=== PATIENT | male | born 1985 | race Caucasian/White ===

== ENCOUNTER 2018-08-07 14:34 | Emergency (ER) | payer OTHER, SELFPAY ==
[2018-08-07 14:29] VITALS: BP 149/91; PULSE 137; RESP 20; TEMP 39.3; O2SAT 95
[2018-08-07 14:42] VITALS: PULSE 124
[2018-08-07] MEDS: Acetaminophen 500 MG TAB (15:21)
[2018-08-07] MEDS: Ketorolac 30 MG/ML VIAL IM (15:23)
[2018-08-07] MEDS: Acetaminophen 500 MG TAB PO (16:00)
[2018-08-07 16:02] VITALS: BP 148/88; PULSE 116; RESP 18; TEMP 38.6; O2SAT 98
--- NOTE | 2018-08-07 16:06 | W.ED.GENAD ---
Discharge Plan Disposition Patient Disposition: HOME Condition: Improving Discharge Details Chief Complaint: RespSymp Clinical Impression: Influenza Reason For Visit: CRISTY Primary Care Provider: None,None ED Provider: Nabil Naqvi Home Meds and New Rx's Prescriptions: No Action No Known Home Meds RF: 0 Discharge Instructions Instructions: Influenza (ED) Additional Instructions: During illness stay well-hydrated and drink lots of water, get plenty of rest, and use [id number] medications as needed for pain, discomfort, or symptoms. Just take as directed on packaging. Feel free to return the emergency department for any new or significant worsening of symptoms otherwise follow-up with your primary care provider if you are not improving after 1 week. Stand Alone Forms: Work Release Referrals: Primary Care Provider [Outside] (As needed for reassessment) Discharge Data Discharge Date/Time-TO BE ENTERED AT DEPARTURE: 08/07/18 16:16 Medical Decision Making Patient presented the emergency department for flulike symptoms. Patient states has similar symptoms but she has resolved. He has had symptoms for the past 3 days. Physical exam is consistent with influenza and no signs of pneumonia, meningitis, retropharyngeal or peritonsillar abscess. Patient is significantly tachycardic and febrile upon presentation but I feel that this is secondary to influenza illness. I did not perform rapid testing due to not changing plan of care due to patient being otherwise healthy with no medical complications and having symptoms greater than 48 hours. Patient was offered IV fluids which he denied IV fluids but was agreeable to IM ketorolac and acetaminophen and would orally hydrate in emergency department. After oral hydration and medications fever began to reduce along with heart rate becoming lower. Patient was encouraged to stay well-hydrated get plenty of rest and continue symptomatic medications and return for any new or significant worsening of his symptoms. After discussion of diagnosis and plan of care patient is no further needs, questions, or concerns and states clear understanding to return to the emergency department for any worsening symptoms. HPI General Mode of arrival: EMS. Date/Time Provider Initiated Documentation: 08/07/18 15:02. Limitations to Documentation: no limitations. Information obtained by: patient and RN notes reviewed. History of Present Illness 33 year old M presents to the emergency department with the chief complaint of Flulike symptoms, described as moderate, with intensity rated at 8. and is localized to the head. Patient started experiencing this day(s) (3) and it has been constant. No relieving factors improve symptom(s), No exacerbating factors reported . Patient did receive the following treatments prior to arrival, none Related Data Home Medications Medication Instructions Recorded Confirmed Unknown [No Known Home Meds] 04/26/15 04/26/15 Allergies Allergy/AdvReac Type Severity Reaction Status Date / Time amoxicillin Allergy Hives Unverified 04/26/15 09:27 General Stated Complaint: RespSymp LALA: 3 Review of Systems Constitutional Reports body ache(s), Reports chills, Reports fever(s), Reports headache(s) and Reports malaise Eyes Denies eye discharge ENT Reports as per HPI, Denies ear discharge, Denies otalgia, Reports headache(s), Reports nasal congestion, Reports nasal discharge, Denies neck pain, Reports sinus pain, Reports sinus pressure, Reports sore throat and Denies throat swelling Cardiovascular Denies chest pain and Denies dyspnea Respiratory Reports cough and Denies dyspnea Musculoskeletal Denies joint swelling and Denies neck pain Integumentary/Breasts Denies rash Neurologic Reports headache(s) Allergic/Immunologic Denies throat swelling [facility] Social History Smoking/Tobacco Use Status: Never Exam Const General: cooperative, comfortable and no acute distress Orientation: alert and awake [facility] Head: normal to inspection, normocephalic and atraumatic Ears: hearing grossly normal bilaterally and TM's normal bilaterally General nose exam: external nose normal Face and sinus: sinuses nontender and no erythema Mouth: oral mucosae normal, no drooling, no muffled voice and no trismus Throat: posterior oropharynx normal, tonsils normal and uvula midline Neck Neck: normal visual inspection, full ROM, no lymphadenopathy, no meningeal signs, trachea midline and supple Resp Effort & Inspection: normal respiratory effort, able to speak in complete sentences and cough Quality of cough: dry Auscultation: clear to auscultation bilaterally Cardio Rate: regular rate Rhythm: regular rhythm Heart Sounds: S1 normal, S2 normal, normal S1 and S2, no click, no gallops, no murmurs and no rubs Skin General skin exam: no rashes or lesions noted and dry skin (warm) Neuro General: alert, awake, oriented x3, gait normal and moves all extremities Cognition: normal cognition Speech: speech normal Course Vital Signs Temperature 39.3 C H 08/07/18 14:29 Pulse 137 H 08/07/18 14:29 Respiratory Rate 20 08/07/18 14:29 Blood Pressure 149/91 H 08/07/18 14:29 Pulse Oximetry 95 08/07/18 14:29 Temperature 38.6 C H 08/07/18 16:02 Temperature Source Oral 08/07/18 16:02 Pulse 116 H 08/07/18 16:02 Respiratory Rate 18 08/07/18 16:02 Respiratory Effort 08/07/18 14:42 Blood Pressure 148/88 H 08/07/18 16:02 Blood Pressure Position Sitting 08/07/18 14:29 Pulse Oximetry 98 08/07/18 16:02 Oxygen Delivery Method Room Air 08/07/18 16:02 Oxygen Flow Rate 0 08/07/18 16:02 Pain Level 5 08/07/18 15:23
--- NOTE | 2018-08-07 16:10 | ED.GENADUL_ITS ---
Discharge Plan Disposition Patient Disposition: HOME Condition: Improving Discharge Details Chief Complaint: RespSymp Clinical Impression: Influenza Reason For Visit: CRISTY Primary Care Provider: None,None ED Provider: Nabil Naqvi Home Meds and New Rx's Prescriptions: No Action No Known Home Meds RF: 0 Discharge Instructions Instructions: Influenza (ED) Additional Instructions: During illness stay well-hydrated and drink lots of water, get plenty of rest, and use [id number] medications as needed for pain, discomfort, or symptoms. Just take as directed on packaging. Feel free to return the emergency department for any new or significant worsening of symptoms otherwise follow-up with your primary care provider if you are not improving after 1 week. Stand Alone Forms: Work Release Referrals: Primary Care Provider [Outside] (As needed for reassessment) Discharge Data Discharge Date/Time-TO BE ENTERED AT DEPARTURE: 08/07/18 16:16 Medical Decision Making Patient presented the emergency department for flulike symptoms. Patient states has similar symptoms but she has resolved. He has had symptoms for the past 3 days. Physical exam is consistent with influenza and no signs of pneumonia, meningitis, retropharyngeal or peritonsillar abscess. Patient is s ignificantly tachycardic and febrile upon presentation but I feel that this is secondary to influenza illness. I did not perform rapid testing due to not changing plan of care due to patient being otherwise healthy with no medical complications and having symptoms greater than 48 hours. Patient was offered IV fluids which he denied IV fluids but was agreeable to IM ketorolac and acetaminophen and would orally hydrate in emergency department. After oral hydration and medications fever began to reduce along with heart rate becoming lower. Patient was encouraged to stay well-hydrated get plenty of rest and continue symptomatic medications and return for any new or significant worsening of his symptoms. After discussion of diagnosis and plan of care patient is no further needs, questions, or concerns and states clear understanding to return to the emergency department for any worsening symptoms. HPI General Mode of arrival: EMS . Date/Time Provider Initiated Documentation: 08/07/18 15:02 . Limitations to Documentation: no limitations . Information obtained by: patient and RN notes reviewed . History of Present Illness 33 year old M presents to the emergency department with the chief complaint of Flulike symptoms, described as moderate, with intensity rated at 8. and is localized to the head. Patient started experiencing this day(s) (3) and it has been constant. No relieving factors improve symptom(s), No exacerbating factors reported . Patient did receive the following treatments prior to arrival, none Related Data Home Medications Medication Instructions Recorded Confirmed Unknown [No Known Home Meds] 04/26/15 04/26/15 Allergies Allergy/AdvReac Type Severity Reaction Status Date / Time amoxicillin Allergy Hives Unverified 04/26/15 09:27 General Stated Complaint: RespSymp LALA: 3 Review of Systems Constitutional Reports body ache(s), Reports chills, Reports fever(s), Reports headache(s) and Reports malaise Eyes Denies eye discharge ENT Reports as per HPI, Denies ear discharge, Denies otalgia, Reports headache(s), Reports nasal congestion, Reports nasal discharge, Denies neck pain, Reports sinus pain, Reports sinus pressure, Reports sore throat and Denies throat swelling Cardiovascular Denies chest pain and Denies dyspnea Respiratory Reports cough and Denies dyspnea Musculoskeletal Denies joint swelling and Denies neck pain Integumentary/Breasts Denies rash Neurologic Reports headache(s) Allergic/Immunologic Denies throat swelling [facility] Social History Smoking/Tobacco Use Status: Never Exam Const General: cooperative, comfortable and no acute distress Orientation: alert and awake [facility] Head: normal to inspection, normocephalic and atraumatic Ears: hearing grossly normal bilaterally and TM's normal bilaterally General nose exam: external nose normal Face and sinus: sinuses nontender and no erythema Mouth: oral mucosae normal, no drooling, no muffled voice and no trismus Throat: posterior oropharynx normal, tonsils normal and uvula midline Neck Neck: normal visual inspection, full ROM, no lymphadenopathy, no meningeal signs, trachea midline and supple Resp Effort & Inspection: normal respiratory effort, able to speak in complete sentences and cough Quality of cough: dry Auscultation: clear to auscultation bilaterally Cardio Rate: regular rate Rhythm: regular rhythm Heart Sounds: S1 normal, S2 normal, normal S1 and S2, no click, no gallops, no murmurs and no rubs Skin General skin exam: no rashes or lesions noted and dry skin (warm) Neuro General: alert, awake, oriented x3, gait normal and moves all extremities Cognition: normal cognition Speech: speech normal Course Vital Signs Temperature 39.3 C H 08/07/18 14:29 Pulse 137 H 08/07/18 14:29 Respiratory Rate 20 08/07/18 14:29 Blood Pressure 149/91 H 08/07/18 14:29 Pulse Oximetry 95 08/07/18 14:29 Temperature 38.6 C H 08/07/18 16:02 Temperature Source Oral 08/07/18 16:02 Pulse 116 H 08/07/18 16:02 Respiratory Rate 18 08/07/18 16:02 Respiratory Effort 08/07/18 14:42 Blood Pressure 148/88 H 08/07/18 16:02 Blood Pressure Position Sitting 08/07/18 14:29 Pulse Oximetry 98 08/07/18 16:02 Oxygen Delivery Method Room Air 08/07/18 16:02 Oxygen Flow Rate 0 08/07/18 16:02 Pain Level 5 08/07/18 15:23
[2018-08-07 16:25] VITALS: BP 148/88; PULSE 116; RESP 18; TEMP 38.6; O2SAT 98
== END 2018-08-07 16:16 | disposition home or self-care (01) ==
PROVIDERS: Emergency Provider Nurse Practitioner Family; PCP Nurse Practitioner Family
DX: J11.1 Influenza due to unidentified influenza virus with other respiratory manifestations (principal)
CPT/HCPCS: 96372; 99284; 99282; J1885

== ENCOUNTER 2018-10-26 07:47 | Outpatient (REF) | payer OTHER, SELFPAY ==
[2018-10-26 12:28] LABS: ALT 63 U/L (12-78); AST 30 U/L (15-37); Alkaline Phosphatase 103 U/L (46-116); Anion Gap 10.1 mmol/L (3-11); BUN 13 mg/dL (7-18); Bilirubin, Total 0.3 mg/dL (0.2-1.0); CO2 26.9 mmol/L (21.0-32.0); CREATININE 1.14 mg/dL (0.70-1.30); Calcium 9.3 mg/dL (8.5-10.1); Chloride 104 mmol/L (98-107); Cholesterol 158 mg/dL (50-200); Glucose 105 mg/dL (70-100); HDL Cholesterol 28 mg/dL (40-60); LDL CHOLESTEROL 112 mg/dL (<100); Potassium 4.4 mmol/L (3.5-5.1); Sodium 141 mmol/L (136-145); Total Protein 7.7 g/dL (6.4-8.2); Triglyceride 120 mg/dL (30-150)
== END 2018-10-26 08:07 ==
LOC: NCHCN 07:47
PROVIDERS: PCP Nurse Practitioner Family; Visit Provider Nurse Practitioner Family
DX: Z13.220 Encounter for screening for lipoid disorders (principal); Z13.228 Encounter for screening for other metabolic disorders; Z98.41 Cataract extraction status, right eye
CPT/HCPCS: 80053; 80061; 83721

== ENCOUNTER 2018-12-06 09:33 | Outpatient (CLI) | payer OTHER, SELFPAY ==
--- NOTE | 2018-12-06 09:30 | DI.RAD_ITS ---
SYMPTOMS/DIAGNOSIS: RT ANKLE PAIN RIGHT ANKLE: The bony structures are normally mineralized. There is no evidence of an ankle fracture or dislocation. A bony density just inferior to the distal fibula may represent an os fibulare vs the residual of an old injury. The mortise joint is well maintained. SUMMARY: No evidence of an acute fracture or dislocation.
== END 2018-12-06 09:53 ==
PROVIDERS: PCP Nurse Practitioner Family; Visit Provider Physician Assistant
DX: M25.571 Pain in right ankle and joints of right foot (principal)
CPT/HCPCS: 73610

== ENCOUNTER 2019-03-15 13:35 | Emergency (ER) | payer OTHER, SELFPAY ==
[2019-03-15 13:40] VITALS: BP 148/62; PULSE 102; RESP 14; TEMP 36.2; O2SAT 98
--- NOTE | 2019-03-15 14:12 | W.ED.GENAD ---
Discharge Plan Disposition Patient Disposition: HOME Condition: Stable Discharge Details Chief Complaint: Sorethroat Clinical Impression: Pharyngitis Primary Care Provider: Shruthi Alanis ED Provider: Yisel Edmonds Home Meds and New Rx's Prescriptions: New azithromycin [Zithromax] 500 mg tablet 500 mg PO DAILY 5 Days Qty: 5 RF: 0 Discharge Instructions Instructions: Pharyngitis (ED) Additional Instructions: Your rapid strep test was negative for strep pharyngitis but your throat swab was sent for a culture for further evaluation. You still may have a bacterial infection or this may be a virus. Alternate Tylenol and Motrin as needed and directed for pain. Take the antibiotics as directed until finished. Follow-up with your primary care doctor next week for reevaluation. Return to the emergency department if you develop any worsening or new concerning symptoms. Stand Alone Forms: Work Release Discharge Data Discharge Physician: Yisel Edmonds Medical Decision Making 33-year-old male with no significant past medical history presents with fever and sore throat since last night. T-max 100.9. Patient able to speak in full sentences. Temp 97.2. No drooling, trismus, peritonsillar abscess. Uvula midline. He has bilateral tonsillar edema, erythema and right-sided exudates. Rapid strep done and negative. Based on patient's exam, does appear consistent with bacterial pharyngitis. Also discussed the possibility of virus or mononucleosis. Patient has an allergy to amoxicillin. Will give a prescription for Zithromax. A dose of Decadron was given here due to pain with swallowing. He is advised to alternate Tylenol and Motrin, drink plenty of fluids, take the antibiotics as directed, follow-up with his primary care doctor and return here at any time if worse. Medical Records Medical records reviewed: Yes I reviewed the patient's medical records. Lab Data Lab results reviewed: Yes I reviewed the patient's lab results. Rapid strep negative HPI General Mode of arrival: ambulatory. Date/Time Provider Initiated Documentation: 03/15/19 13:42. Limitations to Documentation: no limitations. Information obtained by: patient. HPI Narrative: Patient is a 33-year-old male with no significant past medical history presents with sore throat and fever since last night. T-max 100.9. Took Tylenol at noon today. Denies any ear pain, cough, chest pain, shortness of breath or abdominal pain. He states he is having pain with swallowing and eating. Related Data Home Medications Medication Instructions Recorded Confirmed azithromycin [Zithromax] 500 mg PO DAILY 5 Days #5 tab 03/15/19 Previous Rx's Medication Instructions Recorded azithromycin [Zithromax] 500 mg PO DAILY 5 Days #5 tab 03/15/19 Allergies Allergy/AdvReac Type Severity Reaction Status Date / Time amoxicillin Allergy Hives Unverified 01/17/19 08:56 cillins Allergy Severe Uncoded 01/17/19 08:56 General Stated Complaint: Sorethroat LALA: 4 Review of Systems Review of Systems All systems reviewed & are unremarkable except as noted in HPI and below Constitutional Reports as per HPI, Denies chills and Denies fever(s) Eyes Denies blurry vision ENT Denies dizziness, Reports sore throat and Denies throat swelling Cardiovascular Denies chest pain and Denies dyspnea Respiratory Denies cough and Denies dyspnea Gastrointestinal Denies abdominal pain, Denies diarrhea and Denies vomiting Genitourinary Denies hematuria and Denies dysuria Musculoskeletal Denies back pain and Denies numbness Integumentary/Breasts Denies lesions and Denies rash Neurologic Denies dizziness, Denies focal weakness and Denies numbness Allergic/Immunologic Denies throat swelling [facility] Medical History No significant past medical history (Acute) Surgical History No significant past surgical history (Acute) Social History Smoking/Tobacco Use Status: Never Drug use: Never Do you feel safe in your relationship?: Yes Exam Const General: cooperative and healthy appearing Orientation: alert and awake [facility] Head: normal to inspection Ears: hearing grossly normal bilaterally, external ears normal and TM's normal bilaterally General nose exam: external nose normal Face and sinus: normal facial exam Mouth: oral mucosae normal Teeth and gingiva: dentition normal Throat: uvula midline, no peritonsillar masses and posterior oropharynx abnormal edema, erythema and exudates (R tonsil) Eyes General: appearance normal, both eyes and all related structures Eyelids: eyelids normal EOM: EOM intact bilaterally Neck Neck: normal visual inspection Lymphatic: no lymphadenopathy noted Chest Chest: normal inspection of the chest Resp Effort & Inspection: normal respiratory effort and able to speak in complete sentences Auscultation: clear to auscultation bilaterally Cardio Rate: regular rate Rhythm: regular rhythm GI Inspection: normal to inspection Palpation: soft, not firm, no guarding, no hepatosplenomegaly, no masses and nontender Auscultation: normal bowel sounds Skin General skin exam: no rashes or lesions noted Neuro General: alert and awake Cognition: normal cognition Speech: speech normal Gait: normal gait Motor: muscle tone normal throughout Sensory Exam: no sensory deficits noted Extrem General: normal to inspection, full ROM and normal capillary refill Psych Appearance: grossly normal Mental Status: mental status grossly normal Speech and Movement: speech and movement normal Affect: normal affect Thought Process: normal Course Vital Signs Temperature 97.2 F L 03/15/19 13:40 Pulse 102 H 03/15/19 13:40 Respiratory Rate 14 03/15/19 13:40 Blood Pressure 148/62 H 03/15/19 13:40 Pulse Oximetry 98 03/15/19 13:40 Temperature 97.2 F L 03/15/19 13:40 Temperature Source Tympanic 03/15/19 13:40 Pulse 102 H 03/15/19 13:40 Respiratory Rate 14 03/15/19 13:40 Blood Pressure 148/62 H 03/15/19 13:40 Blood Pressure Position Supine 03/15/19 13:40 Pulse Oximetry 98 03/15/19 13:40 Oxygen Delivery Method Room Air 03/15/19 13:40 Oxygen Flow Rate 0 03/15/19 13:40 Pain Level 9 03/15/19 13:40
[2019-03-15] MEDS: Dexamethasone 10 MG/ML VIAL PO (14:33)
== END 2019-03-15 14:35 | disposition home or self-care (01) ==
PROVIDERS: Emergency Provider Physician Assistant; PCP Nurse Practitioner Family
DX: J02.9 Acute pharyngitis, unspecified (principal)
CPT/HCPCS: 87880; 99283; 87081; J1100

== ENCOUNTER 2019-04-21 08:22 | Emergency (ER) | payer OTHER, SELFPAY ==
[2019-04-21 08:24] VITALS: BP 134/79; PULSE 77; RESP 16; TEMP 37; O2SAT 99
--- NOTE | 2019-04-21 08:48 | W.ED.GENAD ---
Discharge Plan Disposition Patient Disposition: HOME Condition: Good Discharge Details Chief Complaint: Sorethroat Clinical Impression: Strep pharyngitis Primary Care Provider: Shruthi Alanis ED Provider: Lara Caicedo Home Meds and New Rx's Prescriptions: New azithromycin 500 mg tablet 500 mg PO DAILY 5 Days Qty: 5 RF: 0 Discharge Instructions Instructions: Strep Throat (ED) Additional Instructions: Encourage hydration. Tylenol and/or ibuprofen as needed for discomfort. Begin azithromycin as prescribed. After you have been on the azithromycin for the next 48 hours, please replace your toothbrush. This is contagious, take care not to spread to others. Please follow-up with your primary care if not improved in the next week. If you develop inability to stay hydrated, vomiting, difficulty breathing, shortness of breath, increased pain or other new/worsening symptoms please seek care urgently once again. Referrals: Shruthi Alanis [Primary Care Provider] - Medical Decision Making Patient is a 43-year-old male presents today with chief complaint of sore throat x1 week. He reports his daughter was diagnosed with strep throat is concerned that he may have the same. States he has been drinking. Has used Tylenol to help with his discomfort. Has not used any recently. States he had a mild cough is been nonproductive. No fevers or chills. No ear pain. Mild nasal congestion. On exam, patient is resting comfortably. No respiratory distress. Vital signs are within normal limits. Posterior oropharynx is mildly erythematous. No exudates or tonsillar swelling. No trismus. No palpable lymphadenopathy. Rapid strep testing was positive. Patient discussed place with months of antibiotic treatment particularly as he has already week into the course and he prefers to treatment at this point. Patient will be placed on antibiotics. Encourage hydration. Advise follow-up with primary if not improved. He was given return precautions. All his questions and concerns were addressed and he is in agreement this plan. HPI General Mode of arrival: ambulatory. Date/Time Provider Initiated Documentation: 04/21/19 08:48. Limitations to Documentation: no limitations. Information obtained by: patient and RN notes reviewed. History of Present Illness 33 year old M presents to the emergency department with the chief complaint of sore throat, described as moderate, with intensity rated at 7. Quality is described as aching, and is localized to the mouth. Patient reports no radiation. Patient started experiencing this week(s) (1) and it has been constant. No relieving factors improve symptom(s), No exacerbating factors reported . Patient notes cough; denies chest pain, diaphoresis, fever/chills, headaches, loss of appetite, nausea/vomiting, rash and shortness of breath. Patient did receive the following treatments prior to arrival, none Related Data Home Medications Medication Instructions Recorded Confirmed azithromycin 500 mg PO DAILY 5 Days #5 tab 04/21/19 Previous Rx's Medication Instructions Recorded azithromycin 500 mg PO DAILY 5 Days #5 tab 04/21/19 Allergies Allergy/AdvReac Type Severity Reaction Status Date / Time amoxicillin Allergy Hives Unverified 04/21/19 08:26 cillins Allergy Severe Uncoded 04/21/19 08:26 General Stated Complaint: Sorethroat LALA: 4 Review of Systems Constitutional Constitutional: Reports as per HPI, Denies chills, Denies fever(s), Denies headache(s) and Denies poor appetite Eyes Eyes: Reports as per HPI, Denies eye discharge and Denies irritation ENT Ears, Nose, Mouth, and Throat: Reports as per HPI and Denies headache(s) Cardiovascular Cardiovascular: Reports as per HPI, Denies chest pain and Denies dyspnea Respiratory Respiratory: Reports as per HPI and Denies dyspnea Gastrointestinal Gastrointestinal: Reports as per HPI, Denies abdominal pain, Denies change in bowel habits, Denies nausea and Denies vomiting Integumentary/Breasts Skin/Breast: Reports as per HPI and Denies rash Neurologic Neurologic: Reports as per HPI and Denies headache(s) [facility] Medical History No significant past medical history (Acute) Surgical History No significant past surgical history (Acute) Social History Smoking/Tobacco Use Status: Never Alcohol Intake: never Drug use: Never Substance use type: does not use Do you feel safe in your relationship?: Yes Exam Const General: cooperative, healthy appearing, comfortable, no acute distress, well developed and well groomed Nutritional Appearance: well nourished and overweight Orientation: alert and awake [facility] Head: normal to inspection, normocephalic and atraumatic Ears: hearing grossly normal bilaterally, external ears normal and TM's normal bilaterally General nose exam: external nose normal and nares normal Face and sinus: normal facial exam, sinuses nontender and face symmetric Mouth: oral mucosae normal, lip normal, tongue normal, oropharynx normal and moist mucous membranes Teeth and gingiva: dentition normal Throat: uvula midline, abnormal tonsil bilaterally erythema, no peritonsillar masses, posterior oropharynx abnormal erythema and no postnasal drainage Eyes General: appearance normal, both eyes and all related structures Neck Neck: normal visual inspection, full ROM, no lymphadenopathy and no meningeal signs Resp Effort & Inspection: normal respiratory effort, able to speak in complete sentences and no respiratory distress Auscultation: clear to auscultation bilaterally, no rales, no rhonchi and no wheezes Cardio Rate: regular rate Rhythm: regular rhythm Heart Sounds: S1 normal and S2 normal Skin General skin exam: no rashes or lesions noted Neuro General: alert and awake Cognition: normal cognition Speech: speech normal Gait: normal gait Psych Appearance: grossly normal and well kempt Mental Status: mental status grossly normal Speech and Movement: speech and movement normal Course Vital Signs Vital signs: Vital Signs Temperature 37.0 C 04/21/19 08:24 Pulse 77 04/21/19 08:24 Respiratory Rate 16 04/21/19 08:24 Blood Pressure 134/79 04/21/19 08:24 Pulse Oximetry 99 04/21/19 08:24 Temperature 37.0 C 04/21/19 08:24 Temperature Source Temporal Artery Scan 04/21/19 08:24 Pulse 77 04/21/19 08:24 Respiratory Rate 16 04/21/19 08:24 Respiratory Effort 04/21/19 08:24 Blood Pressure 134/79 04/21/19 08:24 Blood Pressure Position Sitting 04/21/19 08:24 Pulse Oximetry 99 04/21/19 08:24 Oxygen Delivery Method Room Air 04/21/19 08:24 Oxygen Flow Rate 0 04/21/19 08:24 Pain Level 8 04/21/19 08:24 Lab/Test Results Lab/Test Results: POC Strep Test-KIP(Rapid) Start: 04/21/19 08:31 Freq: .Rapid Strep Test Status: Active Protocol: Document 04/21/19 08:31 AM (Rec: 04/21/19 08:31 AM [id number]) Strep test-KIP(Rapid)-POC POC-Strep test-KIP (Rapid) Positive POC-Strep test-KIP (Rapid) Positive
== END 2019-04-21 09:02 | disposition home or self-care (01) ==
PROVIDERS: Emergency Provider Physician Assistant; PCP Nurse Practitioner Family
DX: J02.0 Streptococcal pharyngitis (principal)
CPT/HCPCS: 87880; 99283

== ENCOUNTER 2020-05-24 12:25 | Emergency (ER) | payer OTHER, SELFPAY ==
--- NOTE | 2020-05-24 12:30 | DI.RAD_ITS ---
EXAM: XR TOE RT GREAT CLINICAL HISTORY: Pain, swelling, R/O fracture TECHNIQUE: COMPARISON: CR RIGHT FOOT COMPLETE from 04/26/2015 FINDINGS: Three views were obtained. No fracture is seen. IMPRESSION: RADIATION DOSE DELIVERED: Total DLP
[2020-05-24 12:31] VITALS: BP 150/86; PULSE 99; RESP 18; TEMP 36.5; O2SAT 99
--- NOTE | 2020-05-24 12:36 | W.ED.GENAD ---
Discharge Plan Disposition Patient Disposition: HOME Condition: Stable Discharge Details Clinical Impression: Gout, Cellulitis, toe Primary Care Provider: Shruthi Alanis ED Provider: Melita Bland Home Meds and New Rx's Prescriptions: New naproxen 500 mg tablet 500 mg PO BID 10 Days Qty: 20 RF: 0 clindamycin HCl 300 mg capsule 300 mg PO BID 7 Days Qty: 14 RF: 0 No Action acetaminophen 500 mg Capsule 1,000 mg PO HS PRN PRNRF: 0 Discharge Instructions Instructions: Cellulitis (ED), Gout (ED) Additional Instructions: Follow up with primary care provider in 3-5 days. Return to ED sooner if any worsening or concerns. Increase oral fluids. Please take Tylenol or Ibuprofen with food every 4-6 hours as needed for pain and swelling. Take naproxen twice a day for 4 to 10 days. Decrease alcohol intake and high-calorie foods such as red meat these tend to exacerbate the condition. You may apply ice every 20 minutes for the first couple of days keep it elevated. No broken bones were noted on x-ray. Return to the ED for any worsening swelling, fever, red streaks noted up the foot or any concerns. Stand Alone Forms: Work Release Referrals: Shruthi Alanis [Primary Care Provider] - Medical Decision Making 35-year-old male presents to the ER with right great toe tenderness for 1 week. He denies any known injury. He denies having any episodes like this before. Toe is tender around the metatarsal interface laryngeal joint, no obvious deformity, there is mild swelling. Denies any fever or other complaints at this time. He does report occasional alcohol use. Differential diagnosis includes cellulitis, underlying injury, gout. At this time uric acid ordered and x-ray to rule out bony abnormality. 1310: Uric acid elevated at 7.4 TECHNIQUE: Imaging protocol: XR Right toes. Views: Minimum 2 views. COMPARISON: CR XR ANKLE RT COMPLETE 12/06/2018 9:39 AM FINDINGS: Bones/joints: Normal. Soft tissues: Soft tissue swelling about the right 1st toe. IMPRESSION: No fracture identified. Soft tissue swelling about the right 1st toe. Thank you for allowing us to participate in the care of your patient. Discussed x-rays and uric acid results with patient verbalized understanding. On reexam he does appear to have a little bit of erythema streaking up the top of his foot. I will cover him for possible cellulitis as well with clindamycin and also given a prescription for naproxen 500 mg twice daily for possible gout. Patient given a work note to be off work for the next few days. Instructed on ice and elevation, verbalized understanding. HPI General Mode of arrival: ambulatory. Date/Time Provider Initiated Documentation: 05/24/20 12:25. Limitations to Documentation: no limitations. Information obtained by: patient. HPI Narrative: 35-year-old male presents to the ER with right great toe tenderness for 1 week. He denies any known injury. He denies having any episodes like this before. Toe is tender around the metatarsal interface laryngeal joint, no obvious deformity, there is mild swelling. Denies any fever or other complaints at this time. He does report occasional alcohol use. Related Data Home Medications Medication Instructions Recorded Confirmed acetaminophen 1,000 mg PO HS PRN PRN 05/24/20 05/24/20 clindamycin HCl 300 mg PO BID 7 Days #14 cap 05/24/20 naproxen 500 mg PO BID 10 Days #20 tab 05/24/20 Previous Rx's Medication Instructions Recorded clindamycin HCl 300 mg PO BID 7 Days #14 cap 05/24/20 naproxen 500 mg PO BID 10 Days #20 tab 05/24/20 Allergies Allergy/AdvReac Type Severity Reaction Status Date / Time amoxicillin Allergy Hives Unverified 05/24/20 12:33 cillins Allergy Severe Uncoded 05/24/20 12:33 General Stated Complaint: Orthopedic LALA: 3 Review of Systems All systems reviewed & are unremarkable except as noted in HPI and below Musculoskeletal Musculoskeletal: Reports arthralgias (Right great toe) COUNTS INCLUDE 234 BEDS AT THE [facility] Medical History (Updated 05/24/20 @ 13:57 by Melita Bland) No significant past medical history Surgical History No significant past surgical history Social History Smoking/Tobacco Use Status: Never Smoking risk assessment performed?: Yes Alcohol Intake: never Drug use: Never Substance use type: does not use Do you feel safe in your relationship?: Yes Exam Extrem Right lower extremity: foot Details: normal capillary refill, tenderness Location: of the great toe Location: at the MTP joint and along the dorsal aspect, abnormal ROM of toe and warmth Ankle/foot/toe images: 1. Pain with palpation Course Vital Signs Vital signs: Vital Signs Temperature 36.5 C 05/24/20 12:31 Pulse 99 H 05/24/20 12:31 Respiratory Rate 18 05/24/20 12:31 Blood Pressure 150/86 H 05/24/20 12:31 Pulse Oximetry 99 05/24/20 12:31 Temperature 36.5 C 05/24/20 12:31 Temperature Source Temporal Artery Scan 05/24/20 12:31 Pulse 99 H 05/24/20 12:31 Respiratory Rate 18 05/24/20 12:31 Blood Pressure 150/86 H 05/24/20 12:31 Blood Pressure Position Sitting 05/24/20 12:31 Pulse Oximetry 99 05/24/20 12:31 Oxygen Delivery Method Room Air 05/24/20 12:31 Oxygen Flow Rate 0 05/24/20 12:31 Pain Level 8 05/24/20 12:32
[2020-05-24] MEDS: Ketorolac 10 MG TAB PO (12:53)
[2020-05-24 13:04] LABS: Uric Acid 7.4 mg/dL (3.5-7.2)
--- NOTE | 2020-05-24 13:47 | DI.VRAD_ITS ---
PROCEDURE INFORMATION: Exam: XR Right Toe(s) Exam date and time: 05/24/2020 12:35 PM Age: 35 years old Clinical indication: Other: Pain, swelling, R/O fracture TECHNIQUE: Imaging protocol: XR Right toes. Views: Minimum 2 views. COMPARISON: CR XR ANKLE RT COMPLETE 12/06/2018 9:39 AM FINDINGS: Bones/joints: Normal. Soft tissues: Soft tissue swelling about the right 1st toe. IMPRESSION: No fracture identified. Soft tissue swelling about the right 1st toe. Dictated and Authenticated by: Lisa Carl MD. Ordering:STEVE Hua MD
== END 2020-05-24 14:10 | disposition home or self-care (01) ==
PROVIDERS: Emergency Provider Registered Nurse Emergency; PCP Nurse Practitioner Family
DX: L03.031 Cellulitis of right toe (principal); M10.9 Gout, unspecified
CPT/HCPCS: 36415; 99284; 73660; 84550; 99283

== ENCOUNTER 2020-09-06 17:13 | Emergency (ER) | payer OTHER, SELFPAY ==
[2020-09-06 17:17] VITALS: BP 142/91; PULSE 83; RESP 20; TEMP 36.1; O2SAT 100
--- NOTE | 2020-09-06 17:25 | W.ED.GENAD ---
Discharge Plan Disposition Patient Disposition: HOME Condition: Stable Discharge Details Clinical Impression: Dog bite of right ear, Laceration Primary Care Provider: Shruthi Alanis ED Provider: Melita Bland Home Meds and New Rx's Prescriptions: New doxycycline hyclate 100 mg capsule 100 mg PO BID 5 Days Qty: 10 RF: 0 No Action acetaminophen 500 mg Capsule 1,000 mg PO PRN PRNRF: 0 Discharge Instructions Instructions: Animal Bite (ED), Laceration (ED) Additional Instructions: Follow up with primary care provider in 3-5 days. Return to ED sooner if any worsening or concerns. Increase oral fluids. Please take Tylenol or Ibuprofen with food every 4-6 hours as needed for pain and swelling. The Steri-Strips will start to fall off in approximately 4 to 6 days. You may reapply Steri-Strip if needed after 2 to 3 days. Return to the ED for any signs of infection including increased redness, swelling, drainage or fever. Take antibiotics as directed. Referrals: Shruthi Alanis [Primary Care Provider] - Discharge Data Discharge Date/Time-TO BE ENTERED AT DEPARTURE: 09/06/20 18:06 Medical Decision Making 35-year-old male presents to the ED with chief complaint of right ear laceration status post dog bite just prior to arrival. Patient has a 5-month-old puppy who is up-to-date on his vaccinations that he was playing with when the puppy bit his right ear. He has approximately 2 cm linear laceration to his external ear antihelix area. No active bleeding at this time. Patient did apply pressure prior to arrival. He is unsure of his last tetanus vaccination. He denies any other complaints or injuries. Wound was extensively irrigated and cleaned, bleeding controlled. 3 Steri strips and benzoine applied to approximate wound. Patient tolerated well. Rx for Doxycycline ordered and patient give 2 tabs to go. Doxycycline was chosen due to patients allergy to Amoxicillin. Patient received Tdap booster. Discussed strict return instructions, home care, and red flags to watch for including signs of infection verbalized understanding. HPI General Mode of arrival: ambulatory. Date/Time Provider Initiated Documentation: 09/06/20 17:13. Limitations to Documentation: no limitations. Information obtained by: patient. HPI Narrative: 35-year-old male presents to the ED with chief complaint of right ear laceration status post dog bite just prior to arrival. Patient has a 5-month-old puppy who is up-to-date on his vaccinations that he was playing with when the puppy bit his right ear. He has approximately 2 cm linear laceration to his external ear antihelix area. No active bleeding at this time. Patient did apply pressure prior to arrival. He is unsure of his last tetanus vaccination. He denies any other complaints or injuries. Related Data Home Medications Medication Instructions Recorded Confirmed acetaminophen 1,000 mg PO PRN PRN 05/24/20 09/06/20 doxycycline hyclate 100 mg PO BID 5 Days #10 cap 09/06/20 Previous Rx's Medication Instructions Recorded doxycycline hyclate 100 mg PO BID 5 Days #10 cap 09/06/20 Allergies Allergy/AdvReac Type Severity Reaction Status Date / Time amoxicillin Allergy Hives Unverified 09/06/20 17:20 cillins Allergy Severe Uncoded 09/06/20 17:20 General Stated Complaint: AnimalBite LALA: 4 Review of Systems All systems reviewed & are unremarkable except as noted in HPI and below ENT Ears, Nose, Mouth, and Throat: Reports otalgia (Dog bite right ear) COUNT INCLUDES THE [facility] Medical History (Updated 09/06/20 @ 17:45 by Melita Bland) No significant past medical history Surgical History No significant past surgical history Social History Smoking/Tobacco Use Status: Never Smoking risk assessment performed?: Yes Alcohol Intake: never Drug use: Never Substance use type: does not use Do you feel safe in your relationship?: Yes Exam Const General: cooperative, healthy appearing, comfortable and well groomed Nutritional Appearance: well nourished Orientation: alert, awake and oriented x3 HENMT Head: normal to inspection and no Redd's sign Ears: TM's normal bilaterally and external ear abnormal other (2 cm linear laceration) Outer ear/TM images: 1. 2 cm laceration, bleeding controlled Face and sinus: normal facial exam Course Vital Signs Vital signs: Vital Signs Temperature 36.1 C L 09/06/20 17:17 Pulse 83 09/06/20 17:17 Respiratory Rate 20 09/06/20 17:17 Blood Pressure 142/91 H 09/06/20 17:17 Pulse Oximetry 100 09/06/20 17:17 Temperature 36.1 C L 09/06/20 17:17 Temperature Source Skin 09/06/20 17:17 Pulse 83 09/06/20 17:17 Respiratory Rate 20 09/06/20 17:17 Respiratory Effort Non-Labored 09/06/20 17:20 Blood Pressure 142/91 H 09/06/20 17:17 Blood Pressure Position Sitting 09/06/20 17:17 Pulse Oximetry 100 09/06/20 17:17 Oxygen Delivery Method Room Air 09/06/20 17:17 Oxygen Flow Rate 0 09/06/20 17:17 Pain Level 4 09/06/20 17:17 Procedures Laceration Laceration 1: Site: other (R Ear) Side (If applicable): right Size (cm): 2 Description: linear Depth: simple, single layer Pre-repair: irrigated extensively Size (cm): other (Steri strips)
[2020-09-06] MEDS: Doxycycline Hyclate 100 MG CAP PO (17:39)
[2020-09-06] MEDS: Doxycycline Hyclate 100 MG, 2 CAPS/BTL PO (17:54)
--- NOTE | 2020-09-06 18:00 | NUR.NOTE ---
Animal bite form faxed to [facility] dispatch attn Samir Rodríguez. [phone].Nursing Note:
== END 2020-09-06 18:06 | disposition home or self-care (01) ==
PROVIDERS: Emergency Provider Registered Nurse Emergency; PCP Nurse Practitioner Family
DX: S01.351A Open bite of right ear, initial encounter (principal); W54.0XXA Bitten by dog, initial encounter
CPT/HCPCS: 90471; 99284; 99283

== ENCOUNTER 2020-12-03 01:40 | Outpatient (CLI) | payer OTHER, SELFPAY ==
--- NOTE | 2020-12-03 09:00 | DI.MRI_ITS ---
Exam(s) MR LOWER JOINT RT WO EXAM: MR LOWER JOINT RT WO CLINICAL HISTORY: Pain,MALUNION OF FX OF RT LOWER LEG, S82.91XP TECHNIQUE: Multiplanar multisequence MRI was performed without intravenous contrast. COMPARISON: CR RIGHT ANKLE COMPLETE from 04/26/2015 CR RIGHT FOOT COMPLETE from 04/26/2015 CR RIGHT ANKLE COMPLETE from 04/26/2015 CR XR ANKLE RT COMPLETE from 12/06/2018 FINDINGS: SKIN: No evidence of ulcer nor subcutaneous tract. No subcutaneous edema around the ankle. BONES/JOINTS: No evidence of acute fracture nor bone contusion. There are multiple calcific density s ubjacent to the lateral malleolus which do not exhibit edema signal and appear corticated and probabl y are accessory ossicles or remote avulsion sequelae. There is no prominent ankle joint effusion. The talar dome appears unremarkable. The ankle mortise is maintained. The subtalar joint appears unrem arkable. Talonavicular and calcaneocuboid joints appear unremarkable, as do the visualized midfoot ar ticulations. There is no evidence of osseous tarsal coalition. There is os trigonum. No associated abnormal signal. LIGAMENTS: The anterior and posterior tibiofibular are intact. The fibular aspect of the anterior talofibular ligament appears to be coming off of the largest sub fibular ossicle and therefore this ossicle is probably a chronic avulsion fracture fragment. Ligament is mildly attenuated. There is no prominent signal abnormality in the anterolateral gutter. The post erior talofibular ligament attachment also appears to be on this same ossicle. On the opposite-medial aspect of the ankle the deltoid ligament appears intact. Suspensory ligament appears intact. SINUS TARSI: There is no effacement of the normal fat signal in this space. Interosseous ligament is intact. There is a sinus tarsi ganglion cyst which measures 1.0 by 1.5 cm. By 1.3 cm. ANTEROLATERAL GUTTER:There is no abnormal signal/abnormal tissue in this space. MUSCULOTENDINOUS STRUCTURES: Achilles tendon: Unremarkable. No evidence of tear nor tendinitis/tendinosis. Plantar fascia: Mild increased signal but no thickening. No nodularity. No abnormal intraosseous sign al in the inferior calcaneus. Anterior Extensor tendons: Unremarkable. Medial Tendons: Posterior Tibialis: Unremarkable. No tear or tenosynovitis evident. Flexor Digitorum longus: Unremarkable. No tear or tenosynovitis evident. Flexor Hallicus longus: Unremarkable. No tear or tenosynovitis evident. Lateral Tendons: Peroneus longus: Unremarkable. No tear nor tenosynovitis evident. Peroneus brevis:Unremarkable. No tear nor tenosynovitis evident. OTHER FINDINGS: None. IMPRESSION: 1. The above described lateral findings are most probably sequela of remote significant inversion inj ury. Although the osteophytic densities evident on prior plain films do not exhibit abnormal signal, the fact that the attachment sites of the anterior and posterior talofibular ligaments are associated with the most superior-largest ossicle implies that this is probably a chronically avulsed fragmen t off the lateral malleolus. There is no bone edema nor overlying soft tissue swelling at this time. 2. There is a located septated ganglion cyst which measures approximately 10 x 15 x 13 millimeter and appears to be originating from the sinus tarsi. This may also be related to sequelae of previous sig nificant inversion injury. 3. There are no tears, tenosynovitis, nor displacement of the peroneus longus and brevis tendons on t he lateral aspect of the ankle. 4. No evidence of stress fracture nor bone contusion signal which would indicate sequelae of chronic altered biomechanics. Also no significant osteoarthritic degenerative changes in the [place] joints n or in the visualized articulations of the midfoot. DATA REPOSITORY:
== END 2020-12-03 02:00 ==
PROVIDERS: PCP Nurse Practitioner Family; Visit Provider Student in an Organized Health Care Education/Training Program
DX: M79.604 Pain in right leg (principal); S82.91 Unspecified fracture of right lower leg
CPT/HCPCS: 73721

== ENCOUNTER 2020-12-22 08:39 | Day surgery (SDC) | payer OTHER, SELFPAY ==
[2020-12-22] VITALS (13 sets, daily range): BP systolic 90–135; BP diastolic 47–85; PULSE 70–107; RESP 12–18; TEMP 36–36.5; TEMPC 36.3; O2SAT 94–99; BMI 37.5
--- NOTE | 2020-12-22 09:01 | ANES.PREOP_ITS ---
General Info Date of Service Date Performed: 12/22/20 Height: 5 ft 11 in Weight: 122.016 kg Body Mass Index (BMI): 37.5 Surgical Procedure: Operation Date: 12/22/20 10:10 Proposed Procedures Side Surgeon p rt ankle ostectomy Right Mariano Collier MD Meds Allergies and Home Medications Allergies Allergy/AdvReac Type Severity Reaction Status Date / Time amoxicillin Allergy Severe Anaphylaxis Unverified 12/22/20 09:06 cillins Allergy Severe Uncoded 12/22/20 09:06 Home Medication Medication Instructions Recorded acetaminophen [Tylenol Extra 500 mg PO Q6H PRN #90 tab 12/22/20 Strength] hydrocodone-acetaminophen 1 tab PO Q6H PRN #5 tab 12/22/20 ibuprofen 600 mg PO TID #90 tab 12/22/20 Current Visit Medications: Current Medications Generic Name Dose Route Start Last Admin Trade Name Freq PRN Reason Stop Dose Admin Ringer's Solution 1,000 mls @ 80 mls/hr 12/22/20 06:00 IV 01/20/21 23:59 INFUSION NANCY Clindamycin Phosphate/Dextrose 900 mg in 50 mls @ 50 mls/hr 12/22/20 06:00 Cleocin In D5w IVPB 12/22/20 18:00 PREOP NANCY IV Miscellaneous Supplies 1 each 12/22/20 06:00 Iv Access IV 01/20/21 23:59 DIRECTED NANCY Sodium Chloride 0 ml 12/22/20 06:00 Normal Saline Flush 10 Ml Syr IV 01/20/21 23:59 PRN PRN Sodium Chloride 0 ml 12/22/20 06:00 Normal Saline 10 Ml Vial IJ 01/20/21 23:59 DIRECTED PRN Sterile Water 0 ml 12/22/20 06:00 Water,Injection,Sterile 10 Ml Vial IJ 01/20/21 23:59 DIRECTED PRN PFSH Active Problems Active Problems: Problem Status Onset Code Peroneal tendinitis, right leg M76.71 Dog bite of right ear S01.351A, W54.0XXA Laceration Malunion of fracture of bone of right lower leg S82.91XP Medical History Medical History History of COVID-19 11/12/20 Tobacco Smoking/Tobacco Use Status: Never Alcohol Alcohol Intake: never Substance Use Substance use: Never Substance use type: does not use Vital Signs and Lab Results Lab Results Blood Type / Crossmatch: No Data to Display Complete Blood Count: No Data to Display Complete Metabolic Panel: No Data to Display Liver Function Panel: No Data to Display Coagulation Panel: No Data to Display Cardiac Panel: 2 No Data to Display Arterial Blood Gas: No Data to Display Venous Blood Gas: No Data to Display Pancreas Panel: No Data to Display Thyroid Panel: No Data to Display Infectious Disease: No Data to Display Blood Cultures: No Data to Display Toxicology Panel: No Data to Display Anesthesia Assessment and Plan Anesthesia History Personal History: No History of General Anesthesia Family History: No Family History of Anesthesia Complications Exercise Tolerance Exercise Tolerance: Metabolic Equivalents>4 Pertinent Negatives Pertinent Negatives: No Symptoms of GERD, No Major Cardiovascular Symptoms or Complaints, No Major Pulmonary Symptoms or Complaints, No History of CVA/TIA and Other (Absence seizures) Cardiac & Pulmonary Exam Cardiac Exam: Normal S1/S2 Heart Sounds Pulmonary Exam: Clear Bilateral Breath Sounds and Active Dry Cough (Infrequent and since COVID) Airway Exam Known Difficult Airway: No Mallampati Class: 2 Mouth Opening: Normal (> 3cm) Thyromental Distance: Greater than 3 cm Neck Range of Motion: Full ROM Neck Circumference: Normal Teeth Condition: Normal Dentition ASA Classification ASA Score: ASA 2 Emergency Case?: No NPO Status NPO Status: NPO Clears >2 hours, Solids >8 hours Anesthesia Plan Resuscitation Status: Full Code Anesthesia Technique: General Anesthesia Airway Planned: Natural Airway Monitors Used: Standard Monitors
--- NOTE | 2020-12-22 09:34 | W.PM.DSUDISC ---
Documented by User: JAMAAL Wells 12/22/20 10:14 Discharge Plan Disposition Patient Disposition: HOME Condition: Stable Discharge Details Reason For Visit: right ankle ostectomy Attending Provider: Mariano Collier Primary Care Provider: Shruthi Alanis Home Meds and New Rx's Prescriptions: New hydrocodone-acetaminophen 5-325 mg tablet 1 tab PO Q6H PRNQty: 5 RF: 0 acetaminophen [Tylenol Extra Strength] 500 mg tablet 500 mg PO Q6H PRNQty: 90 RF: 0 ibuprofen 600 mg tablet 600 mg PO TID Qty: 90 RF: 0 Discontinued acetaminophen 500 mg Capsule 1,000 mg PO PRN PRNRF: 0 Discharge Instructions Additional Instructions: Ankle Ostectomy Discharge Instructions Activity: You may weight bear as tolerated. You should keep the leg elevated as much as possible. You may wiggle your toes and move your hip and knee. You should wear the fracture walking boot when you are up and mobilizing, but may remove it when not and move your ankle as tolerated. Dressings: You should keep the initial dressing on for at least 3 days but would recommend to leave it on for 7 days. It may get wet in the shower but if the dressing starts to peel off you should change it. It should be covered for the first 7 days. You may cover the dressing/wound with a cling wrap or Saran wrap to keep it from getting wet. Medications: - You should take Tylenol and Ibuprofen around the clock for baseline pain. - You have been prescribed a stronger narcotic, Hydrocodone, for breakthrough pain. Follow-up: 2 weeks Equipment/Supplies: Partial Weight Bearing Crutches Activity:: Activity as Tolerated Remove Dressings/Wound Care:: 72 hours Shower/Bathe:: 72 hours Diet:: As Tolerated Discharge Orders Discharge Orders: Discharge Order (Routine); Ordered 12/22/20 Ordered By: Susie Rangel DS: Diagnosis Discharge Diagnosis (1) Malunion of fracture of bone of right lower leg: Status: Acute Documented by User: Mariano Collier MD 12/22/20 11:06 Discharge Plan Disposition Patient Disposition: HOME Condition: Stable Discharge Details Reason For Visit: right ankle ostectomy Attending Provider: Mariano Collier Primary Care Provider: Shruthi Alanis Home Meds and New Rx's Prescriptions: New hydrocodone-acetaminophen 5-325 mg tablet 1 tab PO Q6H PRNQty: 5 RF: 0 acetaminophen [Tylenol Extra Strength] 500 mg tablet 500 mg PO Q6H PRNQty: 90 RF: 0 ibuprofen 600 mg tablet 600 mg PO TID Qty: 90 RF: 0 Discontinued acetaminophen 500 mg Capsule 1,000 mg PO PRN PRNRF: 0 Discharge Instructions Additional Instructions: Ankle Ostectomy Discharge Instructions Activity: You may weight bear as tolerated. You should keep the leg elevated as much as possible. You may wiggle your toes and move your hip and knee. You should wear the fracture walking boot when you are up and mobilizing, but may remove it when not and move your ankle as tolerated. Dressings: You should keep the initial dressing on for at least 3 days but would recommend to leave it on for 7 days. It may get wet in the shower but if the dressing starts to peel off you should change it. It should be covered for the first 7 days. You may cover the dressing/wound with a cling wrap or Saran wrap to keep it from getting wet. Medications: - You should take Tylenol and Ibuprofen around the clock for baseline pain. - You have been prescribed a stronger narcotic, Hydrocodone, for breakthrough pain. Follow-up: 2 weeks Equipment/Supplies: Partial Weight Bearing Crutches Activity:: Activity as Tolerated Remove Dressings/Wound Care:: 72 hours Shower/Bathe:: 72 hours Diet:: As Tolerated Discharge Orders Discharge Orders: Discharge Order (Routine); Ordered 12/22/20 Ordered By: Susie Rangel
[2020-12-22] MEDS: Lactated Ringers 1,000 ML 80 ML IV (09:54)
[2020-12-22] MEDS: CLINDAMYCIN 900 MG/50 ML BAG 50 MG IVPB (10:12)
--- NOTE | 2020-12-22 11:16 | W.ANESPOSTOP ---
Postoperative Evaluation Date, Time and Location Date Performed: 12/22/20 Time Performed: 11:19 Patient Location: PACU Vital Signs Most Recent Imported Vital Signs: Most Recent Vital Signs Temp Pulse Resp BP Pulse Ox 36.5 C 74 18 90/47 L 96 12/22/20 11:05 12/22/20 11:05 12/22/20 11:05 12/22/20 11:05 12/22/20 11:05 Most Recent Manually Entered Vital Signs: Adult Blood Pressure: 97/55 Heart Rate: 77 Respirations: 14 Oxygen Saturation (%): 97 Temperature (C): 36.3 C Pain Score (0-10 Scale): 7 Pain Score Most Recent Pain Score: Most Recent Pain Score Pain Level 0 12/22/20 11:05 Assessment Mental Status: Awake (Alert & Oriented to Patient Baseline) Airway and Respiratory Function: Patent airway with normal (patient baseline) respiratory exam Cardiovascular Function: Hemodynamically Stable Hydration Status: Adequately Hydrated Nausea & Vomiting: No Nausea or Vomiting Pain: Pain is Moderate or Severe Postoperative Pain Management: Pain being addressed with medication Peripheral Nerve Block: Patient did not receive a nerve block
[2020-12-22] MEDS: Normal Saline Flush 10 ML SYR IV (11:26)
[2020-12-22] MEDS: fentaNYL 100 MCG/2 ML VIAL IVP (11:27)
--- NOTE | 2020-12-22 12:34 | ROE_ITS ---
Date of service: 12/22/20 Time of Service: 11:34 Operative Note Operative Note DATE OF PROCEDURE: 12/22/20 PRE-OP DIAGNOSIS: Right Distal Fibula Avulsion Fracture and Malunion POST-OP DIAGNOSIS: same PROCEDURE: Removal of Loose Bony Fragment and Ostectomy of Bony Fibular Prominence - Right SURGEON: Mariano Collier ANESTHESIA TYPE: General:No Airway Refer to Anesthesia Record ESTIMATED BLOOD LOSS: 5 PATHOLOGY: none sent TOURNIQUET TIME: 0 COMPLICATIONS: None Patient was transported to: PACU Patient's condition: stable Indications: Jacqui is a 35-year-old who presented with pain about the right ankle associated with a bony fragment from suspected previous injury. He continued to be limited by pain despite some conservative options and desired this to be removed. MRI was obtained which did show a loose fragment of the distal fibula and a small projection of bone over the distal, posterior fibula without involvement of the peroneal tendons. I reviewed treatment options with him and offered bony removal. I reviewed the risk of the procedure to include bleeding, infection, pain, stiffness, damage to nerves and vessels, damage to muscles and tendons, continued symptoms, peroneal tendon subluxation, blood clot, need for repeat procedures. Findings: The distal fibular bony fragment was loose with a pseudoarticulation of the distal fibula. A small portion of CFL was attached to the and this piece was removed. There is also a projection posteriorly of the distal fibula which was resected and smooth. Procedure Description: Jacqui was greeted in the preoperative holding area. His identity was confirmed and the correct side was identified and marked. The consent was reviewed the patient and signed. He is taken to the operating room placed in the supine position. A bump was placed under the right hip and the right leg was placed on a bone foam ramp. Prophylactic antibiotics in the form of clindamycin were administered. A timeout was performed for safe surgery. The location of the 2 bony prominences were marked in the preoperative area had a time. The right leg was then prepped with ChloraPrep and draped in a standard fashion. The proposed surgical site was marked on the skin. The surgical area was injected with 0.25% ropivacaine with epinephrine. I then made a longitudinal incision overlying the distal fibula and extending towards the base of the fourth metatarsal. This incision was taken out sharply onto the distal fibula. Once at the fibula I was able to palpate the bony mass distally and slightly anterior. I incised directly onto the fibula and raised subperiosteal flaps. Moving distally the fragment was easily identifiable and it showed to have a pseudoarticulation with the distal fibula. There is a small portion of the CFL ligament attached to the posterior aspect of this fragment. When further inspected, there also seem to be some attachment of this ligament to the proper distal fibula and therefore I continue with subperiosteal resection off of the distal fibular fragment. Soft tissue attachments were circumferentially released from this fragment the fragment was removed without difficulty. He measured nearly 20 mm, by 12 mm, by 10 mm. Once this was removed attention was then turned to the posterior fragment. This did not appear to be loose. I continue to release subperiosteally around the fibula leaving the CFL attached to the distal aspect of the remnant posterior fibula. This bony prominence was easily palpable. Using a rongeur I removed it. I also used a rasp to smooth this area down. I did elevate this off the distal fibula minimally but there still was plenty of attachment of the peroneal sheath against the fibula. The distal fibula was palpated multiple times to ensure that there is no bony prominences. A rasp was once again used to ensure a smooth surface without projection. This was then thoroughly irrigated. The deep tissues were injected with 0.25% bupivacaine. The periosteum was reapproximated with a #0 Vicryl. This tissue is excellent in quality and closed nicely over the distal fibula and over the empty space left by the distal fibular fragment. The deeper tissues were reapproximated with a 3-0 Vicryl. The skin was closed with a running 4-0 Monocryl in a subcuticular fashion. This was reinforced with skin affix skin glue and dressed with a Mepilex silver dressing. He is placed to a fracture new [employer] [facility] boot. He was awakened from his anesthesia and taken to the PACU in stable condition. He suffered no complication. He will wear the boot for ambulation. He may remove it when he is not ambulating. He will use crutches for support. He will be discharged home today and follow-up in 10 to 14 days.
[2020-12-22] MEDS: Acetaminophen 325 MG TAB 650 MG PO (12:46)
== END 2020-12-22 14:50 | disposition home or self-care (01) ==
PROVIDERS: PCP Nurse Practitioner Family; Visit Provider Student in an Organized Health Care Education/Training Program
PROC: (CPT 27641; principal; 2020-12-22 10:00)
DX: S82.61XA Displaced fracture of lateral malleolus of right fibula, initial encounter for closed fracture (principal); Z86.16 Personal history of COVID-19
CPT/HCPCS: 27641; J1100; J1885; J2001; J2250; J2405; J3010

== ENCOUNTER 2023-01-15 17:21 | Emergency (ER) | payer BC, SELFPAY ==
[2023-01-15 17:23] VITALS: BP 158/100; PULSE 103; RESP 18; TEMP 36.4; O2SAT 100
--- NOTE | 2023-01-15 17:30 | DI.RAD_ITS ---
Exam(s) XR FOOT LT COMPLETE EXAM: XR FOOT LT COMPLETE CLINICAL HISTORY: pain lat foot, rolled. TECHNIQUE: 2D digital imaging was performed. COMPARISON: CR,XR XR TOE RT GREAT from 05/24/2020 FINDINGS: 3 views No evidence of acute fracture or diastasis of the Lisfranc joint. Bone density normal. No osseous l esions. No radiopaque body. IMPRESSION: No acute osseous findings in the foot. DATA REPOSITORY: RADIATION DOSE DELIVERED:
--- NOTE | 2023-01-15 18:25 | DI.VRAD_ITS ---
PROCEDURE INFORMATION: Exam: XR Left Foot Exam date and time: 01/15/2023 5:56 PM Age: 37 years old Clinical indication: Left; Patient HX: Pain lat foot, rolled TECHNIQUE: Imaging protocol: Radiologic exam of the left foot. Views: 3 or more views. COMPARISON: No relevant prior studies available. FINDINGS: Bones/joints: Normal. No fracture, dislocation or arthropathic change. Soft tissues: Normal. IMPRESSION: No acute findings. Dictated and Authenticated by: Ryan Reyna MD. Ordering:MARCO ANTONIO Morales MD
[2023-01-15 18:38] VITALS: BP 161/102; PULSE 90; RESP 18; TEMP 36.5; O2SAT 98
--- NOTE | 2023-01-15 20:20 | W.ED.GENAD ---
Discharge Plan Disposition Patient Disposition: Home Discharge Details Clinical Impression: Avulsion of foot excluding toes Primary Care Provider: Shruthi Alanis ED Provider: Carmen Hummel Home Meds and New Rx's Prescriptions: Continued acetaminophen [Tylenol Extra Strength] 500 mg tablet 500 mg PO Q6H PRNQty: 90 0RF ibuprofen 600 mg tablet 600 mg PO TID Qty: 90 0RF Discharge Instructions Additional Instructions: Please follow-up with orthopedics, and listing the number below Ibuprofen and Tylenol as needed for pain Ice and elevation You may use crutches to stay off your foot to allow it to heal Toe-touch weightbearing as tolerated Please return should you develop new or worsening complaints Stand Alone Forms: Work Release Referrals: Chris Carranza MD [ [facility] STAFF PHYSICIAN] - Medical Decision Making This 37-year-old male presents with report of left foot pain, twisted ankle and has had pain with walking since that time, denies any additional injuries X-ray shows evidence of small avulsion likely secondary to sprain, placed in a boot and given crutches Referred to orthopedics Ibuprofen and Tylenol as needed for pain Return earlier should you have new or worsening complaints HPI General Date/Time Provider Initiated Documentation: 01/15/23 17:31. HPI Narrative: This 37-year-old male presents with injury to left ankle just prior to arrival. He states that he rolled it while he was going for a walk. Denies any knee pain or any additional injuries. Related Data Home Medications Medication Instructions Recorded Confirmed acetaminophen 500 mg tablet 500 mg PO Q6H PRN #90 tabs 12/22/20 01/15/23 (Tylenol Extra Strength) ibuprofen 600 mg tablet 600 mg PO TID #90 tabs 12/22/20 01/15/23 Previous Rx's Medication Instructions Recorded acetaminophen 500 mg tablet 500 mg PO Q6H PRN #90 tabs 12/22/20 (Tylenol Extra Strength) ibuprofen 600 mg tablet 600 mg PO TID #90 tabs 12/22/20 Allergies Allergy/AdvReac Type Severity Reaction Status Date / Time amoxicillin Allergy Severe Anaphylaxis Verified 01/15/23 17:27 cillins Allergy Severe Uncoded 01/15/23 17:27 General Stated Complaint: Orthopedic LALA: 4 PFSH All Active Problems (Updated 01/15/23 @ 18:17 by JAMAAL Haskins) Avulsion of foot excluding toes (Acute) Delayed surgical wound healing (Acute) Malunion of fracture of bone of right lower leg (Acute) S/P Ostectomy: 12/22/2020 Peroneal tendinitis, right leg (Chronic) Dog bite of right ear (Acute) Laceration (Acute) Medical History History of COVID-19 11/12/20 Surgical History Malunion of fracture of bone of right lower leg S/P Ostectomy: 12/22/2020 Social History Smoking/Tobacco Use Status: Never Smoking risk assessment performed?: Yes Alcohol Intake: never Drug use: Never Substance use type: does not use Housing: apartment Current gender identity: male Do you feel safe at home: Yes Do you feel safe in your relationship?: Yes Exam Extrem Other: Left foot with tenderness laterally, no ankle tenderness, neurovascularly intact Course Vital Signs Vital signs: Vital Signs Temperature 36.4 C L 01/15/23 17:23 Pulse 103 H 01/15/23 17:23 Respiratory Rate 18 01/15/23 17:23 Blood Pressure 158/100 H 01/15/23 17:23 Pulse Oximetry 100 01/15/23 17:23 Temperature 36.5 C 01/15/23 18:38 Temperature Source Oral 01/15/23 18:38 Pulse 90 01/15/23 18:38 Respiratory Rate 18 01/15/23 18:38 Respiratory Effort Normal, Non-Labored 01/15/23 17:27 Blood Pressure 161/102 H 01/15/23 18:38 Blood Pressure Position Sitting 01/15/23 17:23 Pulse Oximetry 98 01/15/23 18:38 Oxygen Delivery Method Room Air 01/15/23 18:38 Oxygen Flow Rate 0 01/15/23 18:38 Pain Level 7 01/15/23 17:23
== END 2023-01-15 18:47 | disposition home or self-care (01) ==
PROVIDERS: Emergency Provider Physician Assistant; PCP Nurse Practitioner Family
DX: S93.402A Sprain of unspecified ligament of left ankle, initial encounter (principal); X50.1XXA Overexertion from prolonged static or awkward postures, initial encounter; Y93.01 Activity, walking, marching and hiking
CPT/HCPCS: 99283; 73630